=== PATIENT | female | born 1950 | race African-American/Black ===

== ENCOUNTER 2016-11-08 09:24 | Day surgery (SDC) | payer MEDICARE ==
[~2016-11-08] VITALS: Ht 167.6 cm; Wt 97.1 kg
[~2016-11-08 09:24] MED LIST: AUGMENTIN500TAB PO; FLONASE NASAL50 MCG; HYDROCHLOROT12.5 MG PO; LISINOPRIL10 MG PO; LORTAB5 PO; NO MEDS; OMEGA XL PO; PRILOSEC20 MG/CAP PO; ROBITUSSIN AC10 ML PO; TRAMADOL HCL50 MG PO; TYLENOL 500MG TAB PO; ULTRAM50 MG OR; ZOFRAN4 MG/TAB PO; [UNRECOGNIZED DRUG - REMARK]
[2016-11-08 10:58] VITALS: BP 170/72
== END 2016-11-08 11:20 | disposition home or self-care (01) ==
LOC: ENDO 09:24 → ORM 13:15 → ENDO 13:15
PROVIDERS: ATTEND Internal Medicine Gastroenterology
PROC: 0DBN8ZX Excision of Sigmoid Colon, Via Natural or Artificial Opening Endoscopic, Diagnostic (ICD-10-PCS; principal; 2016-11-08)
DX: K59.00 Constipation, unspecified (principal); R10.12 Left upper quadrant pain; K63.5 Polyp of colon; R11.0 Nausea; R14.0 Abdominal distension (gaseous); K21.9 Gastro-esophageal reflux disease without esophagitis; K64.4 Residual hemorrhoidal skin tags; K64.8 Other hemorrhoids; I10 Essential (primary) hypertension

== ENCOUNTER 2018-04-27 06:07 | Observation (INO) | payer MEDICARE ==
[~2018-04-27] VITALS: Ht 167.6 cm; Wt 97.0 kg
[2018-04-27 07:07] LABS: HEMATOCRIT 44.1 % (37.0-47.0); HEMOGLOBIN 14.3 g/dl (12.0-16.0); IMMATURE GRANULOCYTES 0.3 % (0.0-5.0); MEAN CELL VOLUME 91.7 fL CALC (80.0-100.0); MEAN CORPUSCULAR HGB 29.7 pG CALC (26.0-32.0); MEAN CORPUSCULAR HGB CONC 32.4 g/L CALC (32.0-36.0); NEUT# 8.56 thou/uL (2.00-7.15); RED BLOOD COUNT 4.81 mill/uL (4.20-5.60)
[2018-04-27 07:14] LABS: ALBUMIN 4.6 g/dL (3.2-5.0); BILIRUBIN, TOTAL 0.5 mg/dL (0.0-1.4); CREATININE 1.2 mg/dL (0.5-1.0); POTASSIUM 4.2 mmol/l (3.5-5.1); TOTAL PROTEIN 8.9 g/dL (6.3-8.2)
[2018-04-27 07:25] LABS: PROTHROMBIN TIME 10.3 SECONDS (9.0-12.5)
[2018-04-27 12:59] VITALS: BP 133/82
[2018-04-27 14:31] LABS: URINE BILIRUBIN - DIPSTICK NEGATIVE (NEGATIVE); URINE BLOOD DIPSTICK NEGATIVE (NEGATIVE); URINE COLOR YELLOW; URINE GLUCOSE - DIPSTICK NEGATIVE (NEGATIVE); URINE KETONE NEGATIVE (NEGATIVE); URINE LEUK ESTERASE NEGATIVE (NEGATIVE); URINE NITRITE - DIPSTICK NEGATIVE (Negative); URINE PH 6.5 (4.5-8.0); URINE PROTEIN - DIPSTICK NEGATIVE (NEG-TRACE); URINE SPECIFIC GRAVITY <=1.005; URINE UROBILINOGEN - DIPSTICK 0.2 E.U./dL (0.2)
[2018-04-27 16:32] VITALS: BP 94/46
[2018-04-27 19:30] VITALS: BP 99/58
[2018-04-28 00:30] VITALS: BP 116/52
[2018-04-28 04:49] VITALS: BP 104/53
[2018-04-28 05:23] LABS: HEMATOCRIT 37.6 % (37.0-47.0); HEMOGLOBIN 12.1 g/dl (12.0-16.0); IMMATURE GRANULOCYTES 0.3 % (0.0-5.0); MEAN CELL VOLUME 92.8 fL CALC (80.0-100.0); MEAN CORPUSCULAR HGB 29.9 pG CALC (26.0-32.0); MEAN CORPUSCULAR HGB CONC 32.2 g/L CALC (32.0-36.0); NEUT# 4.6 thou/uL (2.00-7.15); RED BLOOD COUNT 4.05 mill/uL (4.20-5.60); RED CELL DISTRI WIDTH 14.5 % (11.5-15.5)
[2018-04-28 05:35] LABS: BILIRUBIN, TOTAL 0.2 mg/dL (0.0-1.4); CREATININE 1.1 mg/dL (0.5-1.0); POTASSIUM 4.2 mmol/l (3.5-5.1)
[2018-04-28 05:37] LABS: ALBUMIN 3.2 g/dL (3.2-5.0); TOTAL PROTEIN 6.4 g/dL (6.3-8.2)
[2018-04-28 07:51] VITALS: BP 118/79
[2018-04-28 11:30] VITALS: BP 112/64
[2018-04-28 15:29] VITALS: BP 109/71
== END 2018-04-28 18:43 | disposition home or self-care (01) ==
LOC: ED 06:07 → ED-I 08:54 → ED 09:12 → MS2 09:13 → ED-I 09:13 → MS2 11:49
PROVIDERS: Emergency Medicine; ADMIT Internal Medicine Nephrology; ATTEND Internal Medicine Nephrology
DX: K52.9 Noninfective gastroenteritis and colitis, unspecified (principal); I12.9 Hypertensive chronic kidney disease with stage 1 through stage 4 chronic kidney disease, or unspecified chronic kidney disease; N18.3 Chronic kidney disease, stage 3 (moderate); E66.9 Obesity, unspecified; M79.7 Fibromyalgia; M19.90 Unspecified osteoarthritis, unspecified site; Z68.34 Body mass index [BMI] 34.0-34.9, adult
CPT/HCPCS: J1650; J1956; S0164